=== PATIENT | female | born 1950 | race Caucasian/White ===

== ENCOUNTER → 2016-12-06 | Outpatient (CLI) | payer OTHER ==
[~2016-12-06] MED LIST: ASTEPRO205.5 MCG/ NS; BENICAR HCT 251 TAB PO; CLARITIN-D 24 H1 T24 PO; CRESTOR10 MG PO; IRON TABLETS325 MG PO; MAXALT-MLT10 MG PO; PLAVIX75 MG PO; SYNTHROID 0.0.075 MG PO; TOPAMAX25 MG PO
--- NOTE | 2016-12-06 11:33 | RADIOLOGY REPORT PS360 ---
LUMBAR SPINE 5 VIEWS ORDERING PHYSICIAN : Nathan Ballard MD PATIENT AGE: 66 years GENDER: Female INDICATION: LOW BACK PAIN, RT SIDE TECHNIQUE: 5 view lumbar spine series COMPARISON: Previous CT chest including T-spine spine from 09/12/2014 FINDINGS The lumbar vertebral bodies appear intact with no lumbar compression fractures evident. Disc spaces are fairly well-maintained at the lower 3 levels. L5/S1 disc disc spaces well-maintained. Only borderline narrowing posteriorly at L4/5 L3/4. Mild disc space narrowing L1/2 & L2/3, with scant up to ~2 mm retrolisthesis L1 on L2, as well as L2 on L3. This appears similar to the previous 2013 CT chest More pronounced disc space narrowing at T12/L1, with sclerotic reactive degenerative endplate changes anteriorly. Mild anterior marginal osteophytes. Anterior marginal osteophytes are seen throughout the lower T-spine from T8 through T11. Most likely account for appearance here. Slightly abrupt appearance at at the base of the marginal osteophyte from the superior anterior corner T11 I believe is merely projectional. On the lateral view as this vertebral body appears otherwise unremarkable on the oblique and AP views However There should be focal pain persisting at the thoracolumbar junction consider spot views at the thoracolumbar junction to further evaluate. If severe pain throughout lumbar spine or radicular pain consider MR Degenerative facet changes most evident at L4/5 and L5/S1 bilateral. . Mild dextrocurvature T-spine noted. SI joints unremarkable. Mild diffuse demineralization spine. Cholecystectomy clips noted. Unremarkable gas pattern. No appreciable organomegaly the lung bases clear. IMPRESSION: 1. No discrete acute findings in the lumbar spine. No compression fractures lumbar spine. Mild dextrocurvature L-spine 2. Multilevel degenerative changes Degenerative disc changes most evident at the T12/L1 and to lesser degree, L1/2 and L2/3 Degenerative facet changes most evident at lower L-spine.. 3. Also note degenerative changes throughout lower T-spine with disc space narrowing and anterior marginal osteophytes lower T-spine..- Similar appearance vs CT chest reconstruction images Aug 2014. \ Note: Suspect off center projection most account for the slightly abrupt appearance marginal osteophyte at the anterior superior aspect of T11 & strongly doubt acute injury here on this study. However if pain specifically at thoracolumbar junction remaining consider follow-up coned-down AP and lateral view specific to this region
== END ==
LOC: RAD 10:18
DX: M54.5 Low back pain (principal)